=== PATIENT | male | born 1955 | race Caucasian/White ===

== ENCOUNTER → 2020-12-25 01:50 | Outpatient (CLI) | payer MEDICARE, SELFPAY ==
[2020-12-25 15:23] LABS: SARS-CoV-2 RNA PCR Negative
== END ==
PROVIDERS: PCP Family Medicine; Visit Provider Specialist
DX: Z01.812 Encounter for preprocedural laboratory examination (principal); Z20.822 Contact with and (suspected) exposure to COVID-19
CPT/HCPCS: C9803; U0003; U0005

== ENCOUNTER 2020-12-26 01:49 | Day surgery (SDC) | payer MEDICARE, SELFPAY ==
[2020-12-25 15:34] VITALS: BMI 32.8
[2020-12-26] VITALS (9 sets, daily range): BP systolic 112–140; BP diastolic 72–93; PULSE 60–77; RESP 12–20; TEMP 36.5–36.8; O2SAT 97–99
[2020-12-26 13:52] LABS: Basophils Absolute Auto 0.1 K/mm3 (0.0-0.1); Basophils Percent Auto 1.1 % (0.2-1.2); Eosinophils Absolute Auto 0.4 K/mm3 (0-0.3); Eosinophils Percent Auto 4.6 % (0-4.4); Hematocrit 47.7 % (42.0-52.0); Hemoglobin 16.3 g/dL (14.0-18.0); Immature Granulocyte Absolute 0.04 K/mm3 (0.00-0.031); Immature Granulocyte Percent A 0.4 % (0-0.5); Lymphocytes Percent Auto 31.6 % (18.3-44.2); Mean Corpuscular HGB Conc 34.2 g/dl (32-36); Mean Corpuscular Hemoglobin 30.7 pg (26-34); Mean Corpuscular Volume 89.8 fl (80-100); Mean Platelet Volume 8.9 fl (7.4-10.4); Monocytes Absolute Auto 0.8 K/mm3 (0.1-0.6); Monocytes Percent Auto 8.2 % (2.6-8.5); Neutrophils Absolute Auto 5.1 K/mm3 (1.3-6.7); Neutrophils Percent Auto 54.1 % (45.5-73.1); Platelet Count Result 255 k/mm3 (150-375); Red Blood Count 5.31 M/mm3 (4.6-6.20); Red Cell Distribution Width 12.7 % (11.5-14.5); White Blood Count 9.5 K/mm3 (4.5-10.0)
[2020-12-26 14:03] LABS: Alanine Aminotransferase 19 U/L (4-50); Albumin Level 4.4 g/dL (3.5-5.1); Alkaline Phosphatase 81 U/L (38-126); Anion Gap 4 mmol/L (8-16); Aspartate Amino Transferase 38 U/L (17-59); Bilirubin,Total 0.4 mg/dL (0.2-1.3); Blood Urea Nitrogen 18 mg/dL (9-20); Calcium 9.9 mg/dL (8.4-10.2); Carbon Dioxide 28 mmol/L (22-30); Chloride 107 mmol/L (98-107); Estimated CRCL calculation 98 ml/min; Estimated Glomerular Filt Rate > 60; Glucose 91 mg/dL (75-110); Sodium 139 mmol/L (137-145)
[2020-12-26 14:04] LABS: Prothrombin Time 13.3 Seconds (11.1-14.7)
--- NOTE | 2020-12-26 14:46 | PM.IMHP ---
H&P: HPI History of Present Illness Date/Time: 12/26/20 14:46 chief complaint chest pain 65 years old gentleman with history of hypertension dyslipidemia, is here for elective cardiac catheterization, he underwent stress test which was abnormal, and he has significant chest pain with angina. He be admitted to the hospital for elective cardiac catheterization. Chief Complaint: chest pain PMFSH Social History Social History Smoking status: Never smoker Alcohol intake: never Substance use: never Substance use type: does not use Living arrangements: alone Gender identity (if verbalized by the patient): Male Spiritual care concerns: No Meds Home Medications and Allergies Home Medications Medication Instructions Recorded Confirmed Type aspirin 162.5 mg PO DAILY 12/25/20 12/25/20 History atorvastatin 20 mg PO DAILY 12/25/20 12/25/20 History cholecalciferol (vitamin D3) 125 mcg PO DAILY 12/25/20 12/25/20 History [Dialyvite Vitamin D] lisinopril 20 mg PO DAILY 12/25/20 12/25/20 History Allergies Allergy/AdvReac Type Severity Reaction Status Date / Time No Known Allergies Allergy Unverified 03/31/11 06:53 Exam Narrative: Exam Narrative: Awake alert oriented x3 not in acute distress Neck is supple no obvious JVD, no carotid bruit Chest: Good air entry bilaterally, lungs are clear to auscultation and percussion bilaterally Cardiovascular: Regular rate and rhythm, 2/6 systolic murmur noted left sternal border Abdomen: Soft nontender bowel sounds positive Extremities: No edema has good pulses distally bilaterally H&P: Results Labs Labs: Short CBC 12/26/20 Range/Units 13:21 WBC 9.5 (4.5-10.0) K/mm3 Hgb 16.3 (14.0-18.0) g/dL Hct 47.7 (42.0-52.0) % Plt Count 255 (150-375) k/mm3 BMP 12/26/20 13:21 Sodium 139 Potassium 5.0 Chloride 107 Carbon Dioxide 28 BUN 18 Creatinine 0.80 Glucose 91 Calcium 9.9 Liver Function 12/26/20 Range/Units 13:21 Total Bilirubin 0.4 (0.2-1.3) mg/dL AST 38 (17-59) U/L ALT 19 (4-50) U/L Alkaline Phosphatase 81 (38-126) U/L Albumin 4.4 (3.5-5.1) g/dL Assessment and Plan Assessment and plan (1) Angina at rest: Code(s): I20.8 - Other forms of angina pectoris Status: Acute Assessment and Plan: will plan cardiac catheterization. The procedure was discussed with the patient, risks, benefits, and alternative diagnostic measure was explained, patient agreed to the procedure (2) Abnormal stress electrocardiogram test: Code(s): R94.39 - Abnormal result of other cardiovascular function study Status: Acute
--- NOTE | 2020-12-26 14:48 | P.SEDATION_ITS ---
Moderate Sedation Note-Pt Data Patient Data Allergies Allergy/AdvReac Type Severity Reaction Status Date / Time No Known Allergies Allergy Unverified 03/31/11 06:53 Home Medications Medication Instructions Recorded Confirmed Type aspirin 162.5 mg PO DAILY 12/25/20 12/25/20 History atorvastatin 20 mg PO DAILY 12/25/20 12/25/20 History cholecalciferol (vitamin D3) 125 mcg PO DAILY 12/25/20 12/25/20 History [Dialyvite Vitamin D] lisinopril 20 mg PO DAILY 12/25/20 12/25/20 History Current Medications: Active Medications Sodium Chloride (Normal Saline Iv) 500 mls @ 100 mls/hr IV CONT .Q5H [facility] Sedation/Anesthesia: No previous sedation/anesthesia problems (including family history). [facility] Social History Social History Smoking status: Never smoker Alcohol intake: never Substance use: never Substance use type: does not use Living arrangements: alone Gender identity (if verbalized by the patient): Male Spiritual care concerns: No Mod Sed Physical Exam Physical Exam Pre Procedural Exam: Normal: Appearance, Eyes, Ears, Nose, Neck, Throat, Airway, Lungs, Heart Size, Heart Rate, Heart Rhythm, Neuro Exam, Abdomen, Liver, Kidneys, Spleen, Breasts, Genitalia, Extremities and Skin Hours since solid foods: 12 Hours since liquid intake: 12 Internal Medicine - PN: Obj Da Meds/Results Medications: Active Medications Generic Name Dose Route Start Last Admin Trade Name Freq PRN Reason Stop Dose Admin Sodium Chloride 500 mls @ 100 mls/hr 12/26/20 12:30 Normal Saline Iv IV CONT .Q5H [facility] Labs CBC & Chem 7: 12/26/20 13:21 12/26/20 13:21 Labs: Laboratory Results - last 24 hr 12/26/20 12/26/20 12/26/20 13:21 13:21 13:21 WBC 9.5 RBC 5.31 Hgb 16.3 Hct 47.7 MCV 89.8 MCH 30.7 MCHC 34.2 RDW 12.7 Plt Count 255 MPV 8.9 Immature Gran % (Auto) 0.4 Neut % (Auto) 54.1 Lymph % (Auto) 31.6 [place] % (Auto) 8.2 Eos % (Auto) 4.6 H Baso % (Auto) 1.1 Lymph # (Auto) 3.00 [place] # (Auto) 0.8 H Eos # (Auto) 0.4 H Baso # (Auto) 0.1 Abs Immat Gran (auto) 0.04 H Absolute Neuts (auto) 5.1 Absolute Nucleated RBC 0.0 Nucleated RBC % 0.0 PT 13.3 INR 1.0 Sodium 139 Potassium 5.0 Chloride 107 Carbon Dioxide 28 Anion Gap 4 L BUN 18 Creatinine 0.80 Estim Creat Clear Calc 98 Estimated GFR > 60 Glucose 91 Calcium 9.9 Total Bilirubin 0.4 AST 38 ALT 19 Alkaline Phosphatase 81 Total Protein 8.0 Albumin 4.4 ASA Classification/Sedation ASA Classification/Sedation ASA Class: II Risks: Risks, benefits and alternatives explained and patient/family accepted pl an for sedation. Patient re-evaluated immediately prior to sedation.
--- NOTE | 2020-12-26 15:36 | WPDCARDPROC ---
Cardiac Cath Procedure Note Date of procedure:: 12/26/20 Performing physician:: Brody Arroyo MD Procedure: 1. Left heart catheterization, selective coronary angiogram. 2. Left ventricular angiogram. 3. Angio-Seal device artery hemostasis 4. Conscious sedation. Curing Supervisor: Dr. Brody Arroyo Complications: None. Sedation: Conscious sedation, local anesthesia, using 2 mg of Versed said, 25 mcg of fentanyl, and using 1% lidocaine for local anesthesia. History: 65-year-old gentleman with history of dyslipidemia, history of hypertension was seen because of angina and abnormal stress test, was brought to the catheter builder for elective cardiac catheterization for definite diagnosis of coronary disease Technique: After informed consent was obtained from patient, was brought to the catheter builder, put in the catheter builder table, prepped and draped in usual sterile fashion. Five Moroccan sheath was inserted into the right common femoral artery, through the sheath 5 Moroccan JL4 catheter inserted, advanced to the left coronary artery, left coronary artery angiogram was obtained. The catheter was exchanged over guidewire into a 5 Moroccan JR4 catheter, advanced to the right coronary artery, right coronary artery angiogram was obtained. The catheter then was exchanged over guidewire into this 5 Moroccan pigtail catheter, advanced to left ventricle, left ventricular angiogram was obtained. The catheter then was pulled, the sheath was pulled applying Angio-Seal device for arterial hemostasis. Patient tolerated the procedure no complication, taken from the catheter builder to his room in stable condition stable vital signs. Hemodynamics: aortic pressure 136/60 . LV pressure 134/04 with LVEDP of 24 mmHg Angiographic findings: Left main: Medium size artery no significant disease or stenosis. Lad medium size artery showed ostial 50 60% disease, and distally there is diffuse moderate disease at the distal 3rd of the LAD about 50 60% disease Left circumflex artery, medium size artery, no significant disease or stenosis. RCA: Dominant vessel, showed mid RCA significant irregularity with a 40-50% disease. LV: Normal size left ventricle with normal left ventricular systolic function. Summary: single-vessel coronary disease with moderate disease of the LAD Recommendation: Maximum medical treatment. Risk factor modification
--- NOTE | 2020-12-26 18:21 | SUR.PHASEII ---
RN went over discharge paperwork with the patient. Patient verbalized understanding.
== END 2020-12-26 18:29 | disposition home or self-care (01) ==
PROVIDERS: PCP Family Medicine; Visit Provider Specialist
PROC: 4A023N7 Measurement of Cardiac Sampling and Pressure, Left Heart, Percutaneous Approach (ICD-10-PCS; CPT 93452; principal; 2020-12-26 14:00)
DX: I25.10 Atherosclerotic heart disease of native coronary artery without angina pectoris (principal); R94.39 Abnormal result of other cardiovascular function study; R07.89 Other chest pain; Z79.82 Long term (current) use of aspirin; E78.5 Hyperlipidemia, unspecified; G47.33 Obstructive sleep apnea (adult) (pediatric); I10 Essential (primary) hypertension; R06.00 Dyspnea, unspecified; R00.2 Palpitations; Z82.49 Family history of ischemic heart disease and other diseases of the circulatory system
CPT/HCPCS: 36415; 80053; 85025; 85610; 93458; C1760; C1887; C1894; C9803; G0269; J1644; J2250; J3010; J7040; U0003; U0005

== ENCOUNTER 2021-09-01 01:03 | Day surgery (SDC) | payer MEDICARE, SELFPAY ==
[2021-08-13 13:36] VITALS: BMI 31.0
[2021-09-01 07:01] VITALS: BP 157/116; PULSE 78; RESP 18; TEMP 36.7; O2SAT 99
--- NOTE | 2021-09-01 07:01 | SUR.PREOP ---
Spoke with patient and verified that no anesthesia is to be given today. If he should decide to want anesthesia, the case will be stopped and he will have to be rescheduled at a late date. Patient verbalizes agreement. Also agrees with IV placement for emergency purposes only. Patient also signed a waiver for USB port on necklace around his neck - states it has all his medical information on it.
--- NOTE | 2021-09-01 07:52 | WPDGICN ---
Assessment and Plan Assessment and plan (1) History of colon polyps: Code(s): Z86.010 - Personal history of colonic polyps Status: Acute Assessment and Plan: Patient has a prior history of colon polyps. Plan is for surveillance colonoscopy at this time. Per patient preference he refuses to have Anesthesia during his procedure we will proceed accordingly GI Consult Note Consult date/time: 09/01/21 07:52 HPI: Gage Baer is a 66 year old male Presents for screening colonoscopy. Patient has a history of colon polyps most recently 2016 5 years ago. He states that his current weight appetite bowel movements are normal. He desires neoplasia screening. 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 He has follow-up for known atherosclerotic heart disease. Review of Systems Review of Systems: All systems reviewed & are unremarkable except as noted in HPI and below PMFSH Past Medical History Medical History (Updated 09/01/21 @ 07:53 by Francisco Javier Hauser MD) CAD (coronary artery disease) Hyperlipidemia Hypertension ALIE (obstructive sleep apnea) Social History Social History Smoking status: Never smoker Tobacco type: cigars Additional smoking assessment comments: 1 cigar per week since he was 18 Alcohol intake: never Substance use: never Substance use type: does not use Living arrangements: alone Gender identity (if verbalized by the patient): Male Spiritual care concerns: No Meds Home Medications and Allergies Home Medications Medication Instructions Recorded Confirmed Type aspirin 162.5 mg PO DAILY 12/25/20 08/13/21 History atorvastatin 40 mg PO DAILY 12/25/20 08/13/21 History cholecalciferol (vitamin D3) 125 mcg PO DAILY 12/25/20 08/13/21 History [Dialyvite Vitamin D] lisinopril 20 mg PO DAILY 12/25/20 08/13/21 History Allergies Allergy/AdvReac Type Severity Reaction Status Date / Time cefuroxime Allergy Swelling Verified 09/01/21 06:59 levofloxacin [From Levaquin] Allergy Swelling Verified 09/01/21 06:59 Vital Signs Vital Signs - 24 hr 09/01/21 07:01 Temperature 98.0 F Pulse Rate 78 Respiratory Rate 18 Blood Pressure 157/116 H Pulse Oximetry 99 Exam Narrative: Physical exam reveals patient be alert. Vital signs stable. HEENT exam is unremarkable. Patient is anicteric. Lungs are clear to auscultation and percussion. Heart is without murmur or extra sounds. Abdominal exam bowel sounds are present soft nontender with no hepatosplenomegaly. Digital external rectal exam is normal.
[2021-09-01 08:02] VITALS: BP 122/83; PULSE 76; RESP 20; O2SAT 99
[2021-09-01 08:07] VITALS: BP 122/83; PULSE 83; RESP 25; O2SAT 97
[2021-09-01 08:12] VITALS: BP 114/75; PULSE 72; RESP 20; O2SAT 98
[2021-09-01 08:17] VITALS: BP 116/70; PULSE 73; RESP 20; O2SAT 98
[2021-09-01 08:21] VITALS: BP 114/64; PULSE 74; RESP 24; O2SAT 98
== END 2021-09-01 08:39 | disposition home or self-care (01) ==
PROVIDERS: PCP Family Medicine; Visit Provider Internal Medicine Gastroenterology
PROC: 0DJD8ZZ Inspection of Lower Intestinal Tract, Via Natural or Artificial Opening Endoscopic (ICD-10-PCS; CPT 45378; principal; 2021-09-01 11:45)
DX: Z12.11 Encounter for screening for malignant neoplasm of colon (principal); K63.5 Polyp of colon; I25.10 Atherosclerotic heart disease of native coronary artery without angina pectoris; I10 Essential (primary) hypertension; G47.33 Obstructive sleep apnea (adult) (pediatric); E78.5 Hyperlipidemia, unspecified; F17.290 Nicotine dependence, other tobacco product, uncomplicated; Z79.82 Long term (current) use of aspirin
CPT/HCPCS: 45385; 88305

== ENCOUNTER → 2021-10-07 12:14 | Outpatient (CLI) | payer MEDICARE, SELFPAY ==
--- NOTE | ~2021-10-07 | XR_ITS ---
XR chest 2V DATE: 10/07/2021 12:39 INDICATION: Respiratory condition due to chemicals, gas is TECHNIQUE: 2 views COMPARISON: 11/19/2015 2 view chest FINDINGS: Normal heart size. There is aortic arch calcification. No hilar or mediastinal enlargement. There is moderate bilateral hyperinflation. No pulmonary infiltrate or consolidation, pleural effusio n or pulmonary vascular congestion or pneumothorax. Diffuse idiopathic skeletal hyperostosis of the thoracic spine. IMPRESSION: Moderate hyperinflation; no active cardiac pulmonary disease Aortic calcification Diffuse idiopathic skeletal hyperostosis of the thoracic spine Reviewed, dictated and finalized at location B. E AIDE
== END ==
PROVIDERS: PCP Family Medicine; Visit Provider Family Medicine
DX: J68.9 Unspecified respiratory condition due to chemicals, gases, fumes and vapors (principal); I70.0 Atherosclerosis of aorta; M48.14 Ankylosing hyperostosis [Forestier], thoracic region
CPT/HCPCS: 71046

== ENCOUNTER 2022-05-18 08:44 | Emergency (ER) | payer MEDICARE, SELFPAY ==
--- NOTE | 2022-05-18 09:11 | ED.UPPEXIN ---
HPI - Extremity Injury (Upper) General Chief Complaint: Extremity Injury, Upper Stated Complaint: Possible Gout In Arm Time Seen by Provider: 05/18/22 08:49 History of Present Illness HPI narrative: 67-year-old male presents the emergency room for evaluation of pain to his right wrist. Patient states he has been experiencing pain, swelling and limited range of motion to his right wrist for 3 days. Patient endorses a history of gout, and has been taking indomethacin since Wednesday. Patient denies injury or trauma. Denies fevers. Denies any open wounds. Related Data Home Medications Medication Instructions Recorded Confirmed aspirin 325 mg tablet 162.5 mg PO DAILY 12/25/20 08/13/21 atorvastatin 20 mg tablet 40 mg PO DAILY 12/25/20 08/13/21 cholecalciferol (vitamin D3) 125 125 mcg PO DAILY 12/25/20 08/13/21 mcg (5,000 unit) capsule (Dialyvite Vitamin D) lisinopril 20 mg tablet 20 mg PO DAILY 12/25/20 08/13/21 Allergies Allergy/AdvReac Type Severity Reaction Status Date / Time cefuroxime Allergy Swelling Verified 09/01/21 06:59 levofloxacin [From Levaquin] Allergy Swelling Verified 09/01/21 06:59 Review of Systems Review of Systems: CONSTITUTIONAL: Denies fever, chills, or sweats. EYES: Denies visual changes, redness, or discharge. ENT: Denies rhinorrhea, congestion, sore throat, or otalgia. CARDIOVASCULAR: Denies chest pain, palpitations, or edema. RESPIRATORY: Denies cough or dyspnea. GASTROINTESTINAL: Denies abdominal pain, nausea, vomiting, or diarrhea. GENITOURINARY: Denies dysuria or hematuria. SKIN: Denies rash or itching. MUSCULOSKELETAL: Reports right wrist pain NEUROLOGIC: Denies headache, numbness, dizziness, or weakness. PSYCHIATRIC: Denies anxiety or depression. [facility] Past Medical History Medical History CAD (coronary artery disease) Hyperlipidemia Hypertension ALIE (obstructive sleep apnea) Social History Social History Smoking status: Never smoker Tobacco type: cigars Additional smoking assessment comments: 1 cigar per week since he was 18 Alcohol intake: never Substance use: never Substance use type: does not use Gender identity (if verbalized by the patient): Male Spiritual care concerns: No Exam Narrative: GENERAL: Well-appearing, well-nourished, no physical limitations, and in no acute distress. HEAD: Normocephalic, atraumatic. EYES: Conjunctivae normal, PERRLA and EOMI. CHEST: Clear to auscultation. No respiratory distress. No wheezes rales or rhonchi. No tenderness. HEART: Regular rate and rhythm. No murmur heard. Normal peripheral pulses. ABDOMEN: Soft, nontender, nondistended, normal active bowel sounds. EXTREMITIES: Right wrist: Diffuse swelling of the right hand, tenderness over the base of the thumb and snuffbox, no erythema or ecchymosis no obvious bony abnormality, range of motion limited in all hoover, neurovascular is intact distally SKIN: Warm, dry, no rash. No noted wounds NEURO: No focal deficits. Alert and oriented x3. MAEW. CN's II-XI intact bilaterally, normal gait PSYCH: Cooperative. Normal mood and affect. Course Course Emergency Course: Patient is requesting a uric acid level. Explained to the patient that uric acid levels will not rise until the gout flare has resolved. Patient is also refusing imaging of his right wrist to rule out any anatomical abnormalities or possible osteomyelitis. Discharge Plan Discharge Clinical Impression: Acute pain of right wrist Patient Disposition: Home, Self-Care Condition: Stable Instructions: Antibiotic Form, Splint Care (ED), Swollen Joint (ED) Additional Instructions: Wear the splint for comfort, no longer than 4 days. Begin prednisone tomorrow. When your gout flare has resolved, that is the optimal time to get a uric acid level drawn. Prescriptions: New prednisone 20 mg tablet
[2022-05-18 09:25] VITALS: BP 144/90; PULSE 70; RESP 18; O2SAT 99
== END 2022-05-18 09:58 | disposition home or self-care (01) ==
PROVIDERS: Emergency Provider Nurse Practitioner Family; PCP Family Medicine
DX: M25.531 Pain in right wrist (principal); I25.10 Atherosclerotic heart disease of native coronary artery without angina pectoris; E78.5 Hyperlipidemia, unspecified; I10 Essential (primary) hypertension; G47.33 Obstructive sleep apnea (adult) (pediatric); F17.290 Nicotine dependence, other tobacco product, uncomplicated
CPT/HCPCS: 29125; 96372; 99283; A4565; J1100

== ENCOUNTER → 2022-12-18 08:52 | Outpatient (CLI) | payer MEDICARE, SELFPAY ==
--- NOTE | ~2022-12-18 | XR_ITS ---
EXAMINATION: XR knee LT 3V DATE: 12/18/2022 09:51 INDICATION: Left knee pain TECHNIQUE: Three views of the left knee were obtained. COMPARISON: None. FINDINGS: Alignment is normal. No fracture or osteochondral lesion. There is mild tricompartmental os teoarthritis characterized by tiny marginal osteophytes. There is a small knee joint effusion. Calcif ied atherosclerosis is noted. IMPRESSION: 1. Small knee joint effusion. 2. Tricompartmental osteoarthritis. Reviewed, dictated and finalized at location B.
== END ==
PROVIDERS: PCP Family Medicine; Visit Provider Family Medicine
DX: M25.462 Effusion, left knee (principal); M17.12 Unilateral primary osteoarthritis, left knee
CPT/HCPCS: 73562

== ENCOUNTER 2023-12-05 12:29 | Outpatient (CLI) | payer MEDICARE, SELFPAY ==
--- NOTE | ~2023-12-05 | MR_ITS ---
EXAMINATION: MR brain/brain stem wo con DATE: 12/05/2023 13:33 INDICATION: Malignant neoplasm of the brain, unspecified. TECHNIQUE: Magnetic resonance imaging (MRI) of the brain and brainstem was performed without intraven ous contrast. COMPARISON: None. FINDINGS: There is chronic encephalomalacia in right temporal occipital region with old blood product s. There are scattered areas of nonspecific increased T2-weighted signal intensity in the cerebral wh ite matter, which is within normal limits for the patient's age. There is no acute infarction or abno rmal intracranial mass lesion. The ventricles are normal in size. There is focal thickening in the pa ranasal sinuses. The orbits are normal. There is a trace right mastoid effusion. IMPRESSION: 1. Chronic encephalomalacia in right temporal occipital region. Reviewed, dictated and finalized at location E.
== END 2023-12-05 12:30 | disposition home or self-care (01) ==
LOC: ANHIMG 12:34
PROVIDERS: PCP Family Medicine; Visit Provider Family Medicine
DX: C71.9 Malignant neoplasm of brain, unspecified (principal); G93.89 Other specified disorders of brain
CPT/HCPCS: 70551

== ENCOUNTER 2024-02-19 16:52 | Emergency (ER) | payer MEDICARE, SELFPAY ==
[2024-02-19 16:53] VITALS: BP 149/83; PULSE 80; RESP 16; TEMP 37; O2SAT 100
--- NOTE | 2024-02-19 17:46 | ED.EXTPRO ---
HPI - Extremity Problem General Chief complaint: Extremity Problem,Nontraumatic Stated complaint: gout Time Seen by Provider: 02/19/24 16:57 Source: patient Mode of arrival: ambulatory Limitations: no limitations History of Present Illness HPI Narrative: Patient is a 69 y/o female who presents to the ED with c/o gout. patient reports he had several pieces of chocolate last night which he reports contained fructose. He then developed pain in his R ankle early this morning, waking him from his sleep. patient reports history of frequent gout in states symptoms feel similar. He has had gout in his right ankle before. Reports mild swelling. he is able to ambulate, but has pain with this. Patient reports he typically takes Aleve for his gout, though had a cardiac stent placed in December of this year and is currently on Plavix. Unable to take anti-inflammatories. Denies any fever or other injury to ankle. Related Data Home Medications Medication Instructions Recorded Confirmed atorvastatin 20 mg tablet 40 mg PO DAILY 12/25/20 11/26/23 cholecalciferol (vitamin D3) 125 125 mcg PO DAILY 12/25/20 11/26/23 mcg (5,000 unit) capsule (Dialyvite Vitamin D) naproxen sodium 220 mg tablet 220 mg PO BID PRN 08/31/22 11/26/23 (Aleve) aspirin 325 mg tablet 162 mg PO DAILY 10/16/22 11/26/23 omeprazole magnesium 20 mg 20 mg PO DAILY PRN heartburn 10/16/22 11/26/23 capsule,delayed release Allergies Allergy/AdvReac Type Severity Reaction Status Date / Time allopurinol Allergy Altered Verified 02/19/24 16:56 Sense of Taste cefuroxime Allergy Swelling Verified 02/19/24 16:56 levofloxacin [From Levaquin] Allergy Swelling Verified 02/19/24 16:56 Review of Systems Review of Systems: CONSTITUTIONAL: Denies fever, chills, or sweats. MUSCULOSKELETAL: see HPI. NEUROLOGIC: Denies headache, dizziness, numbness, or weakness. All systems reviewed & are unremarkable except as noted in HPI and below PMFSH Past Medical History Medical History Atherosclerosis of aorta Atherosclerotic heart disease of [place] coronary artery without angina pectoris Cervical disc disorder at C5-C6 level with radiculopathy Chronic sinusitis, unspecified Essential (primary) hypertension Gastro-esophageal reflux disease without esophagitis Gout, unspecified History of colon polyps Hyperlipidemia Hypertension Insomnia, unspecified ALIE (obstructive sleep apnea) Pilocytic astrocytoma Surgical History Surgical History History of craniotomy 04/2000 and 08/2000 History of excision of pilonidal cyst 07/2016 History of hemorrhoidectomy 03/2008 History of knee surgery R knee in 08/1992, Left knee in 11/1992 History of lithotripsy 12/2013 History of vasectomy Social History Social History Smoking status: Current some day smoker Tobacco type: cigars Second hand tobacco smoke exposure: No Alcohol intake: never Substance use: never Substance use type: does not use Do You Feel Safe in your Home?: Yes Lack of Transportation: No Lack of Food: Never True Current Housing: I Have Housing Concerned About Future Housing: No Difficulty Paying Gas/Electric Bills: No Difficulty Paying for Meds: No Currently Unemployed: YES Education: Trade/Vocational Certificate Difficulty w/ Childcare or Family Care: No Living arrangements: alone Occupation/Education: retired Gender identity (if verbalized by the patient): Male Sexual Orientation (if Verbalized by the Patient): Straight or Heterosexual Spiritual care concerns: No Exam Narrative: GENERAL: Well appearing, obese with BMI of 34.2, non-toxic, in no acute distress. HEAD: Normocephalic, atraumatic. RESPIRATORY: Airway patent, respirations nonlabored. CARDIOVASCULAR: Regular r
[2024-02-19] MEDS: dexAMETHasone SOD PHOS INJ 10 MG/ML 1 ML VIAL IM (18:13)
== END 2024-02-19 18:25 | disposition home or self-care (01) ==
PROVIDERS: Emergency Provider Physician Assistant; PCP Family Medicine
DX: M10.9 Gout, unspecified (principal); F17.210 Nicotine dependence, cigarettes, uncomplicated; I25.10 Atherosclerotic heart disease of native coronary artery without angina pectoris; I10 Essential (primary) hypertension; K21.9 Gastro-esophageal reflux disease without esophagitis; E78.5 Hyperlipidemia, unspecified; G47.30 Sleep apnea, unspecified
CPT/HCPCS: 96372; 99283; J1100

== ENCOUNTER 2025-05-15 11:45 | Emergency (ER) | payer MEDICARE, SELFPAY ==
--- OUTSIDE RECORDS SUMMARY | 2005-10-07 08:30 | XMS_ITS | Continuity of Care Document ---
Author Organization [facility] Address [address] [place] [address] [address] [place] [address] Phone Care Team Providers Care Customer Success Associate Name Role Phone Zainab OD OD, Artur Unavailable Unavailabl e Advance Directives Directive Yes / No Effective Date File Name No Information Encounters Encounter Description Practice Location Reason(s) For Visit Diagnoses Date Provider Providers Copied on Encounter [facility], [id number] [place] [address] [address], [place], [place], [id number], [place] tel:[phone] [facility] No Information Zainab OD Artur. [address], [place], [id number], [place]. tel:[phone] Family History Family Member Type Diagnosis Age At Onset No Information Payers Payer name Insurance type Covered democrat ID Authoriza tion(s) No Information Social History Type Description Quantity Date Captured Comments Sex Male Smoking Status No Information Chief Complaint And Reason For Visit No Information Reason For Referral Reason For Referral No Information History Of Present Illness Encounter Date Complaint History Of Prese nt Illness No Information Functional Status Date Functional Assessmen t No Information Instructions Date Instruction Additional Infor mation No Information Assessments Type Assessment Date No Information Patient Care Teams Name Effective Dates (start - stop) Status Members No Information
--- OUTSIDE RECORDS SUMMARY | 2005-10-07 08:30 | XMS_ITS | Continuity of Care Document ---
Author Organization [facility] Address [address] [place] [address] [address] [place] [address] Phone Care Team Providers Care Systems Spec Name Role Phone Zainab OD OD, Artur Unavailable Unavailabl e Advance Directives Directive Yes / No Effective Date File Name No Information Encounters Encounter Description Practice Location Reason(s) For Visit Diagnoses Date Provider Providers Copied on Encounter [facility], [id number] [place] [address] [address], [place], [place], [id number], [place] tel:[phone] [facility] No Information Zainab OD Artur. [address], [place], [id number], [place]. tel:[phone] Family History Family Member Type Diagnosis Age At Onset No Information Payers Payer name Insurance type Covered alliance party ID Authoriza tion(s) No Information Social History [...]
[2025-05-15 11:45] VITALS: BP 137/86; PULSE 80; RESP 16; TEMP 36.8; O2SAT 98
--- OUTSIDE RECORDS SUMMARY | 2025-05-15 12:20 | XMS_ITS | Clinical Summary ---
Author Organization [place] [id number] [facility] Address [address] [place] [address] Care Team Providers Care Cutter Out Name Role Phone Zen Estrada MD Primary Care Provider [phone] Derrick Hernandez MD Unavailable [phone] Allergies Active Allergy Reactions Criticality Noted Date Comments Cefuroxime Swelling Medium 06/15/2018 Swelling Levofloxacin Swelling Medium 06/15/2018 Swelling Medications atorvastatin (LIPITOR) 40 mg tablet Take 1 tablet (40 mg total) by mouth daily Active ezetimibe (ZETIA) 10 mg tablet Take 1 tablet (10 mg total) by mouth daily Active lisinopriL (PRINIVIL,ZESTRI L) 20 mg tablet Take 1 tablet (20 mg total) by mouth daily Active vitamin D3-vitamin K2 25 mcg (1,000 unit)-90 mcg tablet,disintegr ating Take 25 mcg by mouth daily Active clopidogreL (PLAVIX) 75 mg tablet Take 1 tablet (75 mg total) by mouth daily 30 tablet 11 01/14/[address] (PROTONIX) 20 mg EC tablet Take 1 tablet (20 mg total) by mouth 01/20/2024 Active Active Problems Problem Noted Date Diagnosed Date Systolic ejection murmur 03/06/2025 Hyperlipidemia LDL goal <70 01/31/2024 Essential hypertension 01/31/2024 Palpitations 01/31/2024 Family history of early CAD 01/31/2024 PVC (premature ventricular contraction) 01/31/20 Obesity (BMI 30.0-34.9) 01/31/2024 CAD in [place] artery 01/13/2024 Coronary artery disease involving [place] heart 0 12/30/2023 Obstructive sleep apnea Encounters Date Type Department Care Team Description 03/27/2025 Telephone [facility] [address] [place] [phone] Jey Gonzalez MD 03/15/2025 Telephone [facility] [address] [place] [phone] Jey Gonzalez MD 03/14/2025 Telephone [facility] [address] [place] [address] [address] [place] [phone] Radha Ingram, [facility] 03/06/2025 10:15 AM CDT Office Visit [facility] [address] [place] [address] [place] [phone] Jey Gonzalez MD Coronary artery disease involving [place] coronary artery of [place] heart without angina pectoris (Primary Dx); Essential hypertension; Hyperlipidemia LDL goal <70; PVC (premature ventricular contraction); Obstructive sleep apnea; Systolic ejection murmur 03/06/2025 Orders Only [facility] [address] [place] [address] [address] [place] [phone] Provider, MD Abiel from Last 3 Months Surgical History Surgery Date Site/Laterality Comments ARTHROSCOPIC SURGERY Bilateral knees BRAIN SURGERY 08/23/1999 - 08/22/2000 Pilocytic Astrocytoma NOSE SURGERY 08/23/2017 - 08/22/2018 CARDIAC CATHETERIZATION CORONARY ANGIOPLASTY Medical History Medical History Date Comments Obstructive sleep apnea Hypertension Hyperlipidemia Acid indigestion Family History Medical History Relation Name Comments Cancer Brother 1 Lung cancer Brother 2 Heart attack Father Sudden Cardiac Father Dementia Mother Heart attack Mother No Known Problems Sister 1 No Known Problems Sister 2 Relation Name Status Comments Brother 1 Brother 2 Father Mother Sister 1 Alive Sister 2 Alive Social History Tobacco Use Types Packs/Day Years Used Date Smoking Tobacco: Some Days Cigars Started: 1981 Tobacco Cessation:Ready to Q uit: Not Asked; Counseling Given: Not Answered [facility] Utilities Answer Date Recorded In the past 12 months has [employer], gas, oil, or water company threatened to shut off services in your home? No 01/03/2024 Social Connection and Isolation Panel Answer Date Recorded In a typical week, how many times do you talk on the phone with family, friends, or neighbors? Three times a week 01/03/20 How often do you get togethe r with friends or relatives? Once a week 01/03/2024 How often do you attend chur ch or amish services? 1 to 4 times per year 01/03/2024 Do you belong to any clubs o r organizations such as religion groups, unions, fraternal or athletic groups, or school groups? Yes 01/03/2024 How often do you attend meet ings of the clubs or organizations you belong to? Never 01/03/2024 Are you , , di vorced, , never , or living with a partner? Never 01/03/2024 AUDIT-C Answer Date Recorded Q1: How often do you have a drink containing alcohol? Never 01/13/2024 Q2: How many drinks containi ng alcohol do you have on a typical day when you are drinking? Patient does not drink Q3: How often do you have si x or more drinks on one occasion? Never 01/13/2024 Overall Financial Resource Strain (CARDIA) Answe r Date Recorded How hard is it for you to pa y for the very basics like food, housing, medical care, and heating? Not hard at all 01/03/2024 Hunger Vital Sign Answer Date Recorded Within the past 12 months, y ou worried that your food would run out before you got the money to buy more. Never true 01/03/20 24 Within the past 12 months, t he food you bought just didn't last and you didn't have money to get more. Never true 01/03/2024 PRAPARE - Transportation Answer Date Re corded In the past 12 months, has l ack of transportation kept you from medical appointments or from getting medications? No 12/21 In the past 12 months, has l ack of transportation kept you from meetings, work, or from getting things needed for daily living? No 01/03/2024 Housing Stability Vital Sign Answer Misbah e Recorded In the last 12 months, was t here a time when you were not able to pay the mortgage or rent on time? No 01/03/2024 In the last 12 months, how many places have you lived? 1 01/03/2024 In the last 12 months, was t here a time when you did not have a steady place to sleep or slept in a assisted (including now)? No 01/03/2024 Personal Safety Answer Date Recorded Have you ever been in or are you currently in a harmful physical or emotional relationship or is someone making you feel afraid or unsafe? Denies 01/13/2024 Sex and Gender Information Value Date Recorded Sex Assigned at Not on file Legal Sex Male 7:39 PM [employer] Gender Identity Not on file Sexual Orientation Not on file Obstetrics History Last Filed Vital Signs Vital Sign Reading Time Taken Comments Blood Pressure 122/66 03/06/2025 10:25 AM CDT Pulse 70 03/06/2025 10:25 AM CDT Temperature 36.7 C (98.1 F) 01/14/2024 11:42 AM CDT Respiratory Rate 19 01/14/2024 11:42 AM CDT Oxygen Saturation 96% 03/06/2025 10:25 AM CDT Inhaled Oxygen Concentration - - Weight 111.1 kg (245 lb) 03/06/2025 10:25 AM CDT Height 182.9 cm (6') 03/06/2025 10:25 AM CDT Body Mass Index 33.23 03/06/2025 10:25 AM CDT Plan of Treatment Health Maintenance Due Date Last Done Comments Colon Cancer Screening-Colonoscopy 1955 Depression Screening 1955 Hepatitis C Screening 1955 Prostate Cancer Screening-PSA 1955 Hepatitis B Screening 01/20/1974 Abdominal Aortic Aneurysm (A AA) Screen 01/20/2021 Well Visit 65+ 01/20/2021 Pneumococcal vaccine 65+ (2 of 2 - PCV) 06/23/2022 06/23/2021 DTaP/Tdap/Td Vaccine (2 - Td or Tdap) 07/06/2024 07/06/2014 Fall Risk Assessment 01/13/2025 01/14/2024 Covid-19 Vaccine (5 - 2024-2 6 season) 2025 06/18/2022, 08/05/2021, 12/04/2020, Additional history exists Influenza Vaccine (#1) 2025 , 06/23/2021, 06/24/2020, Additional history exists Zoster Vaccine Completed 09/13/2020, 07/11/2020 Medical Devices Implanted Type Area Web Production Artist Device Identifier Shelf Expiration Date Model / Serial / Lot Medtronic Card Vasc Surgery 3.5 X 12mm [place] Rx Coronary Stent [id number] - [id number] Implanted:Qty: 1 on 01/13/2024 by Derrick Hernandez MD at [facility] Medtronic Card Vasc Surgery 09/07/2026 [id number] / / [id number] Insurance [employer] [facility] AETNA MEDICARE Advance Directives For more information, please contact: [phone] * Full Code (Latest Code Status on File) Date Activated Date Inactivated Comments 01/13/2024 4:13 PM 01/14/2024 4:34 PM * Full Code Date Activated Date Inactivated Comments 01/13/2024 3:58 PM 01/13/2024 4:13 PM Care Teams Cutter Out Relationship Specialty Start Date End Date Zen Estrada MD [address] [place] [address] PCP - General Family Medicine 01/04/24 Derrick Hernandez MD [address] [place] [address] Consulting Physician Cardiology 01/14/24
--- OUTSIDE RECORDS SUMMARY | 2025-05-15 12:20 | XMS_ITS | Clinical Summary ---
Author Organization [facility] [email or web address] Address [address] [place] [address] Care Team Providers Care Skate Maker Name Role Phone Zen Estrada MD Primary Care Provider [phone] Source Comments [facility] [email or web address],non-owned Affiliates and Associated Physician Practices is amultiple site organization consisting of ambulatory clinics and hospital sitesin [place], [place], [place] and [place]. This disclosure is being madepursuant to the Care Everywhere program and may not contain all information available regarding this patient. Last updated 18.[facility] [email or web address] Allergies Active Allergy Reactions Criticality Noted Date Comments Allopurinol Other 07/20/2018 Sense of taste affected Cefuroxime Urticaria Medium 07/20/2018 Levofloxacin Urticaria Medium 07/20/2018 Medications * Be aware that medications may not be up to date on this document. Alwaysverify current medications with the patient. 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 Inverted papilloma of lateral nasal wall 018 Nasal septal perforation 07/20/2018 Malignant neoplasm of brain 04/11/2012 Overview (11/22/2017): Linac Based radiosurgery, 1700cGy single fraction 12/2002. Nasal polyps Chronic pansinusitis Immunizations Immunization Administration Dates Next Due INFLUENZA VACCINE 06/08/2018 Social History Tobacco Use Types Packs/Day Years Used Date Smoking Tobacco: Never Smokeless Tobacco: Never Alcohol Use Standard Drinks/Week Comments No 0 (1 standard drink = 0.6 oz pur e alcohol) Sex and Gender Information Value Date Recorded Sex Assigned at Not on file Legal Sex Male 6:30 PM [employer] Gender Identity Not on file Sexual Orientation Not on file Last Filed Vital Signs Vital Sign Reading Time Taken Comments Blood Pressure 117/75 09/06/2019 9:23 AM [employer] Pulse 70 09/06/2019 9:23 AM [employer] Temperature 36.6 C (97.9 F) 09/26/2018 5:45 PM [employer] Respiratory Rate 20 09/26/2018 6:00 PM [employer] Oxygen Saturation 93% 09/26/2018 6:15 PM [employer] Inhaled Oxygen Concentration - - Weight 104.3 kg (230 lb) 09/06/2019 9:23 AM [employer] Height 177.8 cm (5' 10) 09/06/2019 9:23 AM [employer] Body Mass Index 33 09/06/2019 9:23 AM [employer] Plan of Treatment Health Maintenance Due Date Last Done Comments COLOGUARD (AGES 45-75) - COL ON CA SCREENING 1956 COLON MONITORING 1956 COLONOSCOPY - COLON CA SCREENING 1956 CT COLONOGRAPHY - COLON CA SCREENING 1955 Colorectal Cancer Screening 1956 FIT - COLON CA SCREENING 1956 FLEX SIG - COLON CA SCREENING 1955 HEPATITIS C SCREENING 01/16/1974 DTAP/TDAP/TD VACCINES (1 - Tdap) 01/20/1975 PNEUMOCOCCAL VACCINE 50+ (1 of 1 - PCV) 01/20/2006 ZOSTER VACCINE (1 of 2) 01/20/2006 SCREENING FOR DIABETES 09/26/2021 09/26/2018 DEPRESSION SCREENING 08/23/2024 COVID-19 VACCINE (1 - 2023-2 5 season) 2025 INFLUENZA VACCINE (#1) 2025 06/08/2018 Respiratory Syncytial Virus (RSV) Vaccine Pt: or over 60 yrs (1 - 1-dose 75+ series) 01/20/2031 HEPATITIS B VACCINE Aged Out No longe r eligible based on patient's age to complete this topic HIB VACCINE Aged Out No longer eligi ble based on patient's age to complete this topic HPV VACCINE Aged Out No longer eligi ble based on patient's age to complete this topic MENINGOCOCCAL (Group B) VACC INE SHARED DECISION-MAKING Aged Out No longer eligibl e based on patient's age to complete this topic MENINGOCOCCAL GROUPS A/C/Y/W VACCINE Aged Out No longer eligible b ased on patient's age to complete this topic Procedures Procedure Name Priority Date/Time Associated Diagnosis Comments BASIC METABOLIC PANEL (CALCIUM TOTAL) STAT 09/26/2018 12:16 PM [facility] Nasal septal perforation from Last 3 Months or Most Recently Relevant to Health Maintenance Results * BASIC METABOLIC PANEL (CALCIUM TOTAL) (09/26/2018 12:16 PM [facility]) BUN 14 7 - 26 mg/dL 09/26/2018 12:45 PM [facility] Creatinine 0.8 0.6 - 1.2 mg/dL 09/26/2018 12:45 PM [facility] Sodium 140 136 - 145 mmol/L 09/26/2018 12:45 PM [facility] Potassium 4.5 3.5 - 4.5 mmol/L 09/26/2018 12:45 PM [facility] Chloride 106 98 - 107 mmol/L 09/26/2018 12:45 PM [facility] CO2 22 22 - 29 mmol/L 09/26/2018 12:45 PM [facility] Glucose 93 70 - 115 mg/dL 09/26/2018 12:45 PM [facility] Calcium 10.0 8.4 - 10.2 mg/dL 09/26/2018 12:45 PM [facility] Anion Gap 17 8 - 18 09/26/2018 12:45 PM [facility] BUN/Creatinine Ratio 18 7 - 23 09/26/2018 12:45 PM [facility] Osmolality Calculated 290 270 - 300 mOsm/kg 09/26/2018 12:45 PM [employer] [facility] eGFR >60 >60 mL/min/1.7 3 m2 09/26/2018 12:45 PM [facility] Blood BLOOD SPECIMEN / Unknown Venipuncture / Unknown 09/26/2018 12:16 PM [employer] 09/26/2018 12:27 PM [employer] us Aide Bean MD LAB - CHEMISTRY ORDER ALANA Final Result [facility] [address] [place] [address], [facility] [phone] from Last 3 Months or Most Recently Relevant to Health Maintenance Insurance [facility] MANAGED MEDICARE ADV Advance Directives * Full Code (Latest Code Status on File) Date Activated Date Inactivated Comments 09/26/2018 5:58 AM 09/26/2018 7:35 PM Care Teams Skate Maker Relationship Specialty Start Date End Date Zen Estrada MD PCP - General 11/13/09
--- NOTE | 2025-05-15 13:19 | ED.RECABL ---
HPI - Recheck/Abnormal Lab/Rx General Chief Complaint: Recheck/Abnormal Lab/Rx Stated Complaint: gout Time Seen by Provider: 05/15/25 12:02 Source: patient Mode of arrival: ambulatory Limitations: no limitations History of Present Illness HPI narrative: This is a 70-year-old male with history of CAD status post stents, gout, hypertension and hyperlipidemia who presents to the ED for right wrist pain. Patient states that yesterday he had nodules that he believe flared up his gout that commonly occurs his wrist ankles. He states he was woken up with right wrist pain and he took his colchicine as previously prescribed. Denies fevers, chills. Related Data Home Medications ?Medication ?Instructions ?Recorded ?Confirmed ?Last Taken ?Type Frna's for Leg cramps PO 03/10/24 11/28/24 Unknown History famotidine 20 mg tablet (Pepcid) 20 mg PO DAILY 03/10/24 11/28/24 Unknown History lactase 9,000 unit tablet 9,000 unit PO ONCE 03/10/24 11/28/24 Unknown History aspirin 325 mg tablet 80 mg PO DAILY 06/12/24 11/28/24 Unknown History Allergies Allergy/AdvReac Type Severity Reaction Status Date / Time allopurinol Allergy Altered Verified 05/15/25 11:47 Sense of Taste cefuroxime Allergy Swelling Verified 05/15/25 11:47 levofloxacin (From Levaquin) Allergy Swelling Verified 05/15/25 11:47 Review of Systems Review of Systems: Gen.: Denies fevers or chills Eyes: Denies eye pain or visual change ENT: Denies congestion Respiratory: Denies shortness of breath or cough CV: Denies chest pain or palpitations GI: Denies abdominal pain nausea, emesis or diarrhea denies burning, urgency, frequency or hematuria Musculoskeletal: As per HPI Neuro: Denies numbness, tingling, weakness or focal weakness Skin: Denies rash Except as documented, all other systems reviewed and negative PMF Past Medical History Medical History Morbid obesity due to excess calories Personal history of adenomatous and serrated colon polyps Pilocytic astrocytoma Essential (primary) hypertension Atherosclerosis of aorta Atherosclerotic heart disease of [place] coronary artery without angina pectoris Insomnia, unspecified Gout, unspecified Cervical disc disorder at C5-C6 level with radiculopathy Chronic sinusitis, unspecified Gastro-esophageal reflux disease without esophagitis ALIE (obstructive sleep apnea) Hypertension Hyperlipidemia Surgical History Surgical History History of knee surgery R knee in 08/1992, Left knee in 11/1992 History of excision of pilonidal cyst 07/2016 History of lithotripsy 12/2013 History of hemorrhoidectomy 03/2008 History of vasectomy History of craniotomy 04/2000 and 08/2000 Social History Social History Smoking status: Current some day smoker Tobacco type: cigars Second hand tobacco smoke exposure: No Alcohol intake: never Substance use: never Substance use type: does not use Do You Feel Safe in your Home?: Yes Lack of Transportation: No Lack of Food: Never True Current Housing: I Have Housing Concerned About Future Housing: No Difficulty Paying Gas/Electric Bills: No Difficulty Paying for Meds: No Currently Unemployed: YES Education: Trade/Vocational Certificate Difficulty w/ Childcare or Family Care: No Living arrangements: alone Occupation/Education: retired Gender identity (if verbalized by the patient): Male Sexual Orientation (if Verbalized by the Patient): Straight or Heterosexual Spiritual care concerns: No Exam Narrative: APPEARANCE: No acute distress, nontoxic, resting in bed HEENT: Normocephalic, atraumatic, OMM RESPIRATORY: No respiratory distress CARDIOVASCULAR: Appears well perfused ABDOMINAL: Nondistended MUSCULOSKELETAl: Pain with passive range of motion of the right wrist, warmth to touch. NEURO: Awake and alert. SKIN:: Warm, dry. No rashes lesions or abrasions PSYCHIATRIC: Normal affect/mood, Course Vital Signs Vital signs: Vital Signs Temperature 98.2 F 05/15/25 11:45 Pulse Rate 80 05/15/25 11:45 Respiratory Rate 16 05/15/25 11:45 Blood Pressure 137/86 05/15/25 11:45 Pulse Oximetry 98 05/15/25 11:45 Temperature 98.2 F 05/15/25 11:45 Pulse Rate 80 05/15/25 11:45 Respiratory Rate 16 05/15/25 11:45 Blood Pressure 137/86 05/15/25 11:45 Pulse Oximetry 98 05/15/25 11:45 MDM - Recheck/Abnormal Lab/Rx MDM Narrative Medical decision making narrative: 70-year-old male with history of gout who presents to the ED for wrist pain. On initial evaluation, patient was in no acute distress, afebrile, hemodynamically stable. He did have pain with range of motion the right wrist as well some warmth to touch. This was very similar to his prior episodes of acute gout. Patient already taking his colchicine relief. Patient was given Solu-Medrol here. He was given a short course of prednisone. He was advised follow-up with his PCP in the next few days for re-evaluation. Patient was agreeable to this plan. Given strict return precautions. Differential Diagnosis Differential diagnosis: Likely other (Gout, sprain, strain, unlikely septic arthritis) Medical Records Attestation: I reviewed the patient's medical records. Discharge Plan Discharge Clinical Impression: Gout, unspecified Qualifiers: Gout site: multiple sites Gout etiology: unspecified cause Chronicity: unspecified Qualified Code(s): M10.9 - Gout, unspecified Patient Disposition: Home Condition: Stable Instructions: Antibiotic Form Additional Instructions: Take prednisone as prescribed. Follow up with their PCP in the next few days for re-evaluation. Return to the ED for any new or worsening symptoms. Patient Language: Hungarian Prescriptions: New prednisone 20 mg tablet 40 mg PO DAILY 4 Days Qty: 8 0RF Rx Instructions: begin taking 05/16/25 No Action famotidine [Pepcid] 20 mg tablet 20 mg PO DAILY lactase 9,000 unit tablet 9,000 unit PO ONCE Rx Instructions: administer with meals and/or snacks Fran's for Leg cramps tablet PO Rx Instructions: 2 tablets with water as needed for leg cramps lisinopril 20 mg tablet 20 mg PO DAILY Qty: 100 1RF ezetimibe 10 mg tablet 10 mg PO DAILY Qty: 100 1RF clopidogrel 75 mg tablet 75 mg PO DAILY Qty: 100 1RF atorvastatin 40 mg tablet 40 mg PO DAILY Qty: 100 1RF aspirin 325 mg tablet 80 mg PO DAILY [id number] 3.5-10,000-1 mg/mL-unit/mL-% solution 4 drp EACH EAR Q8H Qty: 10 0RF colchicine 0.6 mg tablet 0.6 mg PO BID Qty: 30 0RF Rx Instructions: TAKE 1.2 MG (2 TABLETS) AT FIRST DOSE, FOLLOWED BY 0.6 MG (1 TABLET) 1 HOUR LATER ON FIRST DAY TAKE 0.6 MG (1 TABLET) TWICE DAILY FOR NEXT 1 WEEK Follow-up/Referrals: Zen Estrada MD [Primary Care Provider, Family Practice]
== END 2025-05-15 13:33 | disposition home or self-care (01) ==
PROVIDERS: Emergency Provider Student in an Organized Health Care Education/Training Program; PCP Family Medicine
DX: M10.9 Gout, unspecified (principal); M25.531 Pain in right wrist; I25.10 Atherosclerotic heart disease of native coronary artery without angina pectoris; I10 Essential (primary) hypertension; E78.5 Hyperlipidemia, unspecified; Z95.5 Presence of coronary angioplasty implant and graft; F17.290 Nicotine dependence, other tobacco product, uncomplicated
CPT/HCPCS: 96372; 99283; J2919